=== PATIENT | male | born 1985 | race Caucasian/White ===

== ENCOUNTER 2020-10-05 16:00 | Observation (INO) | payer OTHER ==
[2020-10-05] MEDS ORDERED: Sodium Chloride 0.9% 1,000 ML IV ONE (16:32)
[2020-10-05] MEDS ORDERED: Sodium Chloride 0.9% 2.5 ML Syringe FLUSH PRN (16:32)
[2020-10-05] MEDS ORDERED: Sodium Chloride 0.9% 10 ML Syringe FLUSH PRN (16:32)
[2020-10-05 17:14] LABS: BLOOD UREA NITROGEN,BUN 15 mg/dL (7.0-18.0); CARBON DIOXIDE,CO2 25.2 mmol/L (21.0-32.0); CHLORIDE,CL 103 mmol/L (98-107); GLUCOSE RANDOM 95 mg/dL (74-106); POTASSIUM,K 3.9 mmol/L (3.5-5.1); SODIUM,NA 137 mmol/L (136-148)
--- NOTE | 2020-10-05 17:19 | CT ---
INDICATION: Right-sided weakness TECHNIQUE: Non-contrast CT of the head is submitted. No comparisons. FINDINGS: The ventricles, sulci and gyri are of normal size, shape and contour. Midline structures are centrally located. No convincing evidence of intra- or extra-axial fluid collections. IMPRESSION: 1. No radiographic evidence of acute intracranial abnormalities. Please note that all CT scans at this facility use dose modulation, iterative reconstruction, and/or weight-based dosing when appropriate to reduce radiation dose to as low as reasonably achievable. Dictated by Laurent Parra MD @ 10/05/2020 5:17:[address] Laurent Parra @ Oct 05 2020 5:17PM
--- NOTE | 2020-10-05 17:29 | CR ---
Indication: Right-sided weakness Comparison: None available. Technique: Single AP view chest Findings: There is hyperinflation and chronic interstitial change. There is mild central pulmonary vascular congestion. There is no dense consolidation, effusion or pneumothorax. The cardiac silhouette is enlarged with a dual-chamber pacer. The bony thorax is grossly intact. Impression: Mild hyperinflation and central pulmonary vascular congestion without dense consolidation. Demonstration of mild cardiomegaly with cardiac valve prosthesis and dual-chamber pacer. Dictated by Stephen Del Rosario MD @ 10/05/2020 5:28:[address] Stephen Del Rosario @ Oct 05 2020 5:28PM
--- NOTE | 2020-10-05 18:12 | EDM.PDOC ---
ED HPI GENERAL MEDICAL PROBLEM - General Chief Complaint: General Stated Complaint: BODY TWITCHING Time Seen by Provider: 10/05/20 16:07 - History of Present Illness INITIAL COMMENTS - FREE TEXT/NARRATIVE: HISTORY AND PHYSICAL: History of present illness: This is a 35-year-old gentleman with a history significant for a bicuspid aortic valve status post aortic valve replacement x2. 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 Patient reports that he is currently on chronic antibiotic therapy for endocarditis as well as a chronic anticoagulation therapy. Patient reports that all the surgeries have been done at the [facility]. Patient presented to the ER today secondary to concerns of weakness to his right upper extremity as well as twitching in his right upper and right lower extremity. 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 Patient reports that he dropped his ranch and bent over to pick it up and was having from a hard time grasping it. Patient reports that he picked up 5 times and dropped it 5 times. Patient reports only 6 attempt he was able to hold it with his right hand in place in his pocket. Patient felt dizzy and so he went to his car and thought that he might have been dehydrated because he did not drink much fluids today while he was outdoors. Patient sat in his truck turned on the air conditioning and called his mother. Patient reports that while he was sitting in his truck he started having twitching of his right upper extremity with his wrist biceps and shoulder flexing intermittently for approximately 30 minutes. Patient reports he called his mother for medical advice because she is a nurse and she was concerned that he might be dehydrated she told him to drink fluids. Patient reports he pushed fluids while he was in his truck with no significant improvement in the twitching so he called his form and to bring him to the ED. Upon arrival to the ED the patient reports that the twitching had significantly decreased and that the weakness in his right hand had completely resolved. Patient reports that he had no other symptomatology today. Patient denies any recent fevers, shakes, chills, nausea, vomiting, diarrhea, dysuria, frequency, urgency, chest pain, shortness of breath, abdominal pain. Patient denies any associated slurring of speech, blurred vision or double vision. Patient denies any weakness to his left upper or lower extremities. Patient denies any weakness to his right lower extremity but reports that he was experiencing some intermittent episodes of twitching to his right leg as well. Upon my evaluation in the ED, the patient reports that the weakness is no longer present and the twitching has nearly completely resolved. Review of systems: As per history of present illness and below otherwise all systems reviewed and negative. Past medical history: As per history of present illness and as reviewed below otherwise noncontribu tory. Surgical history: As per history of present illness and as reviewed below otherwise noncontributory. Social history: No reported history of drug abuse. Family history: As per history of present illness and as reviewed below otherwise noncontributory. Physical exam: This patient was seen and evaluated during the 2019 SARS-CoV-2 novel coronavirus pandemic period. Community viral transmission is ongoing at time of this encounter and the emergency department is operating under pandemic response procedures. Constitutional: Patient is oriented to person, place, and time. Appears well- developed and well-nourished. No distress. HEENT: Moist mucous membranes Head: Normocephalic and atraumatic Eyes: Right eye exhibits no discharge. Left eye exhibits no discharge. No scleral icterus Neck: Normal range of motion. No tracheal deviation present. Cardiovascular: Normal rate and regular rhythm. Pulmonary: Effort normal, no respiratory distress. Abdominal: No distention Musculoskeletal: Normal range of motion Neurologic: Alert and oriented to person, place and time. Skin: [place], warm and dry. Psychiatric: Normal mood and affect. Behavior is normal. Judgment and thought content normal. Nursing note and vital signs have been reviewed Neuro: A&Ox3. Cranial nerves II-XII grossly intact, 5/5 strength to bilateral upper and lower extremities, sensation intact to bilateral upper and lower extremities, no nystagmus, PERRLA, EOMI, normal speech, proprioception intact to bilateral lower extremities, normal finger to nose test, gait normal. Patient has normal rapid alternating motion, normal [id number], normal [id number]. Patient has no pronator drift and his strength in all extremities is 5 out of 5. Diagnostics: CT head no acute pathology. Chest Xray: Normal cardiac silhouette No infiltrates or effusions identified. No PTX No evidence of acute bony fracture. As interpreted by ER MD: Armando EKG: As interpreted by ER physician: Armando: Nonspecific ST-T wave abnormalities Prolonged QT interval at 0.492. Left axis deviation No evidence of ST elevation VA Paced rhythm at a rate of [address]-T wave abnormalities. Therapeutics: [] Assessment and plan: This is a 35-year-old gentleman with a history significant for stroke in the past believed to be secondary to vegetations on his aortic valve repair who presents ER today with signs symptoms concerning for possible stroke that occurred at 3 PM. Patient currently is on chronic anticoagulation therapy and is not a candidate for any thrombolytic intervention and so TPA is not an option. Upon arrival to the ED, the patient has an NIH score of 0. Patient's neuro exam is normal. Patient does have residual twitching. Of concern is whether or not the patient had a small TIA resulting in scar tissue and the twitching that he was having in his car was a focal seizure. At this time, the patient is clinically hemodynamic stable but will need to be admitted to the hospital for further evaluation of a possible stroke. Patient's INR is therapeutic. Patient's labs are all within normal limits. Case was discussed with Dr. Welsh who agrees with admitting patient for ops t elemetry for further evaluation of strokelike symptoms. Definitive disposition and diagnosis as appropriate pending reevaluation and review of above. - Related Data Allergies Allergy/AdvReac Type Severity Reaction Status Date / Time No Known Allergies Allergy Verified 10/05/20 16:38 Home Meds: Home Meds Cefadroxil [Duricef] 500 mg PO BID 10/05/20 [History] Losartan [Cozaar] 25 mg PO DAILY 10/05/20 [History] Warfarin [Coumadin] 5 mg PO DAILY 10/05/20 [History] ED ROS GENERAL - Review of Systems Review Of Systems: See Below ED EXAM, GENERAL - Physical Exam Exam: See Below Course - Vital Signs Last Recorded V/S: Last Vital Signs Temp 97.3 F 10/05/20 16:27 Pulse 72 10/05/20 16:27 Resp 18 10/05/20 16:27 BP 120/67 10/05/20 16:27 Pulse Ox 95 10/05/20 16:27 - Orders/Labs/Meds Orders: Active Orders 24 hr Category Date Time Status EKG Documentation Completion [RC] AM Care 10/05/20 16:32 Active CORONAVIRUS COVID-19 ELEAZAR [MOLEC] Stat Lab 10/05/20 17:51 Received MAGNESIUM [CHEM] Routine Lab 10/05/20 18:02 Ordered PHOSPHORUS [CHEM] Routine Lab 10/05/20 18:02 Ordered Sodium Chloride 0.9% [Saline Flush] Med 10/05/20 16:32 Active 10 ml FLUSH ASDIRECTED PRN Sodium Chloride 0.9% [Saline Flush] Med 10/05/20 16:32 Active 2.5 ml FLUSH ASDIRECTED PRN Saline Lock Insert [OM.PC] Stat Oth 10/05/20 16:32 Ordered Medication Orders Sodium Chloride (Sodium Chloride 0.9% 10 Ml Syringe) 10 ml FLUSH ASDIRECTED PRN PRN Reason: Keep Vein Open Last Admin: 10/05/20 16:38 Dose: 10 ml Documented by: SHONDA Sodium Chloride (Sodium Chloride 0.9% 2.5 Ml Syringe) 2.5 ml FLUSH ASDIRECTED PRN PRN Reason: Keep Vein Open Last Admin: 10/05/20 16:38 Dose: 2.5 ml Documented by: SHONDA Labs: Laboratory Tests 10/05/20 10/05/20 10/05/20 Range/Units 16:20 16:20 17:25 WBC 8.20 (4.0-11.0) K/uL RBC 4.63 (4.50-5.90) M/uL Hgb 14.2 (13.0-17.0) g/dL Hct 41.0 (38.0-50.0) % MCV 88.6 (80.0-98.0) fL MCH 30.7 (27.0-32.0) pg MCHC 34.6 (31.0-37.0) g/dL RDW Std Deviation 43.5 (28.0-62.0) fl RDW Coeff of Janeth 13 (11.0-15.0) % Plt Count 225 (150-400) K/uL MPV 9.90 (7.40-12.00) fL Neut % (Auto) 63.0 (48.0-80.0) % Lymph % (Auto) 23.2 (16.0-40.0) % [place] % (Auto) 12.1 (0.0-15.0) % Eos % (Auto) 1.5 (0.0-7.0) % Baso % (Auto) 0.2 (0.0-1.5) % Neut # (Auto) 5.2 (1.4-5.7) K/uL Lymph # (Auto) 1.9 (0.6-2.4) K/uL [place] # (Auto) 1.0 H (0.0-0.8) K/uL Eos # (Auto) 0.1 (0.0-0.7) K/uL Baso # (Auto) 0.0 (0.0-0.1) K/uL Nucleated RBC % 0.0 /100WBC Nucleated RBCs # 0 K/uL INR 2.67 Sodium 137 (136-148) mmol/L Potassium 3.9 (3.5-5.1) mmol/L Chloride 103 (98-107) mmol/L Carbon Dioxide 25.2 (21.0-32.0) mmol/L BUN 15 (7.0-18.0) mg/dL Creatinine 1.0 (0.8-1.3) mg/dL Est Cr Clr Drug Dosing 122.16 mL/min Estimated GFR (MDRD) > 60.0 ml/min Glucose 95 (74-106) mg/dL Calcium 9.0 (8.5-10.1) mg/dL Total Bilirubin 1.1 H (0.2-1.0) mg/dL AST 25 (15-37) IU/L ALT 29 (14-63) IU/L Alkaline Phosphatase 100 (46-116) U/L Troponin I < 0.050 (0.000-0.056) ng/mL Total Protein 7.4 (6.4-8.2) g/dL Albumin 3.8 (3.4-5.0) g/dL Globulin 3.6 (2.6-4.0) g/dL Albumin/Globulin Ratio 1.1 (0.9-1.6) Meds: Medications Generic Name Dose Route Start Last Admin Trade Name Freq PRN Reason Stop Dose Admin Sodium Chloride 10 ml 10/05/20 16:32 10/05/20 16:38 Sodium Chloride 0.9% 10 Ml Syringe FLUSH 10 ml ASDIRECTED PRN Administration Keep Vein Open Sodium Chloride 2.5 ml 10/05/20 16:32 10/05/20 16:38 Sodium Chloride 0.9% 2.5 Ml Syringe FLUSH 2.5 ml ASDIRECTED PRN Administration Keep Vein Open Discontinued Medications Generic Name Dose Route Start Last Admin Trade Name Baltazar PRN Reason Stop Dose Admin Sodium Chloride 1,000 mls @ 999 mls/hr 10/05/20 16:32 10/05/20 16:38 Normal Saline IV 10/05/20 17:32 999 mls/hr .Bolus ONE Administration Departure - Departure Time of Disposition: 18:13 Disposition: Refer to Observation Condition: Good Clinical Impression: CVA, Cerebrovascular accident, Seizure-like activity - Discharge Information Referrals: Arjun Lagunas MD [Primary Care Provider] - Sepsis Event Note (ED) - Evaluation Sepsis Screening Result: No Definite Risk - Focused Exam Vital Signs: Vital Signs Temp Pulse Resp BP Pulse Ox 10/05/20 16:27 97.3 F 72 18 120/67 95 - My Orders Last 24 Hours: My Active Orders 10/05/20 16:32 EKG Documentation Completion [RC] AM Sodium Chloride 0.9% [Saline Flush] 10 ml FLUSH ASDIRECTED PRN Sodium Chloride 0.9% [Saline Flush] 2.5 ml FLUSH ASDIRECTED PRN Saline Lock Insert [OM.PC] Stat 10/05/20 17:51 CORONAVIRUS COVID-19 ELEAZAR [MOLEC] Stat - Assessment/Plan Last 24 Hours: My Active Orders 10/05/20 16:32 EKG Documentation Completion [RC] AM Sodium Chloride 0.9% [Saline Flush] 10 ml FLUSH ASDIRECTED PRN Sodium Chloride 0.9% [Saline Flush] 2.5 ml FLUSH ASDIRECTED PRN Saline Lock Insert [OM.PC] Stat 10/05/20 17:51 CORONAVIRUS COVID-19 ELEAZAR [MOLEC] Stat
--- NOTE | 2020-10-05 19:03 | PCM.HP.2 ---
H&P History of Present Illness - General Date of Service: 10/05/20 Admit Problem/Dx: Admission Diagnosis/Problem Admission Diagnosis/Problem Stroke-like symptoms Source of Information: Patient, Family History Limitations: Reports: No Limitations - History of Present Illness Initial Comments - Free Text/Narative: This is a 35-year-old gentleman with a history significant for a bicuspid aortic valve status post aortic valve replacement x3, TIA, status post pacemaker who comes in with concerns of right hand twitching and dizziness. Patient reports that he has had a history of congenital bicuspid aortic valve which was initially repaired in September 2015, March 2016 it had to be revised due to valve dehiscence and it was found out that his valve was infected and did require to be replaced which eventually also resulted in a TIA from aortic valve vegetation.. Patient states that soon after he again started having trouble with his heart and breathing and that eventually his had to be replaced again in May [address] [facility]. Patient has a mechanical aortic valve and is on Coumadin as well as lifelong antibiotic therapy. Patient presented to the ER today secondary to concerns of twitching of his right upper extremity. 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 Patient reports that he dropped his ranch and bent over to pick it up several times but he did not seem to reach it. Patient states that "he felt drunk" and was feeling "out of it". 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 She recommended that he drink some more water but patient continued to have twitching in his right hand with his wrist biceps and shoulder flexing intermittently for about 30 minutes. so he called EMS and was brought into the hospital. Upon arrival to the ED the patient reports that the twitching had significantly decreased and that the weakness in his right hand had completely resolved. Patient reports that he had no other symptomatology today. Patient denies any recent fevers, shakes, chills, nausea, vomiting, diarrhea, dysuria, frequency, urgency, chest pain, shortness of breath, abdominal pain. Patient denies any associated slurring of speech, blurred vision or double vision. Patient denies any weakness to his left upper or lower extremities. Patient denies any weakness to his right lower extremity but reports that he was experiencing some intermittent episodes of twitching to his right leg as well. Upon my evaluation in the ED, the patient did not endorse any weakness to me but did say that he had twitching in his arm which had completely resolved by the time I examined the patient. EKG was unremarkable for any acute process, troponin was negative, CT scan of the head was done which was unremarkable for any intracranial acute process. Given patient's complicated cardiac history and history of TIA patient was admitted for observation overnight for stroke work-up - Related Data Allergies/Adverse Reactions: Allergies Allergy/AdvReac Type Severity Reaction Status Date / Time No Known Allergies Allergy Verified 10/05/20 16:38 Home Medications: Home Meds Cefadroxil [Duricef] 500 mg PO BID 10/05/20 [History] Losartan [Cozaar] 25 mg PO DAILY 10/05/20 [History] Warfarin [Coumadin] 5 mg PO DAILY 10/05/20 [History] Past Medical History Respiratory History: Reports: None Musculoskeletal History: Reports: Other (See Below) Other Musculoskeletal History: Missing sternum secondary to infection - Past Surgical History Cardiovascular Surgical History: Reports: Valve Replacement, Vascular Surgery Social & Family History - Family History Family Medical History: No Pertinent Family History - Tobacco Use Tobacco Use Status *Q: Former Tobacco User Used Tobacco, but Quit: Yes Month/Year Tobacco Last Used: unknown - Caffeine Use Caffeine Use: Reports: None - Recreational Drug Use Recreational Drug Use: No H&P Review of Systems - Review of Systems: Review Of Systems: See Below General: Denies: Fever, Chills, Malaise HEENT: Denies: Contact Lenses Pulmonary: Denies: Shortness of Breath, Wheezing Cardiovascular: Denies: Chest Pain, Palpitations Gastrointestinal: Denies: Abdominal Pain, Anorexia Genitourinary: Denies: Dysuria, Frequency, Burning, Pain Musculoskeletal: Denies: Neck Pain, Shoulder Pain, Arm Pain, Back Pain Skin: Denies: Cyanosis, Jaundice, Mottled, Diaphoresis Psychiatric: Denies: Confusion, Depression, Mood Lability, Anxiety Neurological: Denies: Confusion, Dizziness, Headache, Difficulty Walking, Weakness, Change in Speech Hematologic/Lymphatic: Denies: Anemia, Easy Bleeding, Easy Bruising Exam - Vital Signs Vital Signs: Last Vital Signs Temp 36.3 C 06/29/21 16:27 Pulse 72 10/05/20 16:27 Resp 18 10/05/20 16:27 BP 120/67 10/05/20 16:27 Pulse Ox 95 10/05/20 16:27 Weight: 90.718 kg - Exam General: Alert, Oriented, Cooperative Neck: Supple Lungs: Clear to Auscultation, Normal Respiratory Effort Cardiovascular: Regular Rate, Regular Rhythm GI/Abdominal Exam: Normal Bowel Sounds, Soft, Non-Tender Back Exam: Normal Inspection, Full Range of Motion Extremities: Normal Inspection, Normal Range of Motion - Patient Data Lab Results Last 24 hrs: Laboratory Results - last 24 hr 10/05/20 10/05/20 10/05/20 Range/Units 16:20 16:20 16:20 WBC 8.20 (4.0-11.0) K/uL RBC 4.63 (4.50-5.90) M/uL Hgb 14.2 (13.0-17.0) g/dL Hct 41.0 (38.0-50.0) % MCV 88.6 (80.0-98.0) fL MCH 30.7 (27.0-32.0) pg MCHC 34.6 (31.0-37.0) g/dL RDW Std Deviation 43.5 (28.0-62.0) fl RDW Coeff of Janeth 13 (11.0-15.0) % Plt Count 225 (150-400) K/uL MPV 9.90 (7.40-12.00) fL Neut % (Auto) 63.0 (48.0-80.0) % Lymph % (Auto) 23.2 (16.0-40.0) % Snyder % (Auto) 12.1 (0.0-15.0) % Eos % (Auto) 1.5 (0.0-7.0) % Baso % (Auto) 0.2 (0.0-1.5) % Neut # (Auto) 5.2 (1.4-5.7) K/uL Lymph # (Auto) 1.9 (0.6-2.4) K/uL Snyder # (Auto) 1.0 H (0.0-0.8) K/uL Eos # (Auto) 0.1 (0.0-0.7) K/uL Baso # (Auto) 0.0 (0.0-0.1) K/uL Nucleated RBC % 0.0 /100WBC Nucleated RBCs # 0 K/uL INR Sodium 137 (136-148) mmol/L Potassium 3.9 (3.5-5.1) mmol/L Chloride 103 (98-107) mmol/L Carbon Dioxide 25.2 (21.0-32.0) mmol/L BUN 15 (7.0-18.0) mg/dL Creatinine 1.0 (0.8-1.3) mg/dL Est Cr Clr Drug Dosing 122.16 mL/min Estimated GFR (MDRD) > 60.0 ml/min Glucose 95 (74-106) mg/dL Calcium 9.0 (8.5-10.1) mg/dL Phosphorus 3.6 (2.6-4.7) mg/dL Magnesium 2.0 (1.8-2.4) mg/dL Total Bilirubin 1.1 H (0.2-1.0) mg/dL AST 25 (15-37) IU/L ALT 29 (14-63) IU/L Alkaline Phosphatase 100 (46-116) U/L Troponin I < 0.050 (0.000-0.056) ng/mL Total Protein 7.4 (6.4-8.2) g/dL Albumin 3.8 (3.4-5.0) g/dL Globulin 3.6 (2.6-4.0) g/dL Albumin/Globulin Ratio 1.1 (0.9-1.6) SARS-CoV-2 RNA (ELEAZAR) (NEGATIVE) 10/05/20 10/05/20 Range/Units 17:25 17:51 WBC (4.0-11.0) K/uL RBC (4.50-5.90) M/uL Hgb (13.0-17.0) g/dL Hct (38.0-50.0) % MCV (80.0-98.0) fL MCH (27.0-32.0) pg MCHC (31.0-37.0) g/dL RDW Std Deviation (28.0-62.0) fl RDW Coeff of Janeth (11.0-15.0) % Plt Count (150-400) K/uL MPV (7.40-12.00) fL Neut % (Auto) (48.0-80.0) % Lymph % (Auto) (16.0-40.0) % Snyder % (Auto) (0.0-15.0) % Eos % (Auto) (0.0-7.0) % Baso % (Auto) (0.0-1.5) % Neut # (Auto) (1.4-5.7) K/uL Lymph # (Auto) (0.6-2.4) K/uL Snyder # (Auto) (0.0-0.8) K/uL Eos # (Auto) (0.0-0.7) K/uL Baso # (Auto) (0.0-0.1) K/uL Nucleated RBC % /100WBC Nucleated RBCs # K/uL INR 2.67 Sodium (136-148) mmol/L Potassium (3.5-5.1) mmol/L Chloride (98-107) mmol/L Carbon Dioxide (21.0-32.0) mmol/L BUN (7.0-18.0) mg/dL Creatinine (0.8-1.3) mg/dL Est Cr Clr Drug Dosing mL/min Estimated GFR (MDRD) ml/min Glucose (74-106) mg/dL Calcium (8.5-10.1) mg/dL Phosphorus (2.6-4.7) mg/dL Magnesium (1.8-2.4) mg/dL Total Bilirubin (0.2-1.0) mg/dL AST (15-37) IU/L ALT (14-63) IU/L Alkaline Phosphatase (46-116) U/L Troponin I (0.000-0.056) ng/mL Total Protein (6.4-8.2) g/dL Albumin (3.4-5.0) g/dL Globulin (2.6-4.0) g/dL Albumin/Globulin Ratio (0.9-1.6) SARS-CoV-2 RNA (ELEAZAR) NEGATIVE (NEGATIVE) Result Diagrams: 10/05/20 16:20 10/05/20 16:20 Sepsis Event Note - Evaluation Sepsis Screening Result: No Definite Risk - Focused Exam Vital Signs: Vital Signs Temp Pulse Resp BP Pulse Ox 10/05/20 16:27 36.3 C 72 18 120/67 95 - Problem List (1) Twitching SNOMED Code(s): 304466660 ICD Code: R25.3 - FASCICULATION Status: Acute Current Visit: Yes (2) Dizziness SNOMED Code(s): 774931284, 145729817 ICD Code: R42 - DIZZINESS AND GIDDINESS Status: Acute Current Visit: Yes (3) CVA, Cerebrovascular accident SNOMED Code(s): 485284849 ICD Code: I63.9 - CEREBRAL INFARCTION, UNSPECIFIED Status: Acute Current Visit: Yes (4) Seizure-like activity SNOMED Code(s): 494135983 ICD Code: R56.9 - UNSPECIFIED CONVULSIONS Status: Acute Current Visit: Yes (5) Aortic valve replaced SNOMED Code(s): 1768611571816, 96727187, 3683914930298 ICD Code: Z95.2 - PRESENCE OF PROSTHETIC HEART VALVE Status: Acute Current Visit: Yes (6) Cardiac pacemaker in situ SNOMED Code(s): 664626639 ICD Code: Z95.0 - PRESENCE OF CARDIAC PACEMAKER Status: Acute Current Visit: Yes Problem List Initiated/Reviewed/Updated: Yes Orders Last 24hrs: Active Orders 24 hr Category Date Time Status Patient Status [ADT] Routine ADT 10/05/20 18:13 Active Ambulate [RC] ASDIRECTED Care 10/05/20 18:51 Ordered EKG Documentation Completion [RC] AM Care 10/05/20 16:32 Active Oxygen Therapy [RC] PRN Care 10/05/20 18:52 Ordered Pulse Oximetry [RC] PRN Care 10/05/20 18:52 Ordered VTE/DVT Education [RC] PER UNIT ROUTINE Care 10/05/20 18:52 Ordered Vital Signs [RC] Q4H Care 10/05/20 18:52 Ordered Heart Healthy Diet [DIET] Diet 10/05/20 Dinner Ordered Ang Head wo Cont [MR] Routine Exams 10/05/20 18:59 Ordered Ang Neck w Cont [MR] Routine Exams 10/05/20 18:59 Ordered Brain w wo Cont [MR] Routine Exams 10/05/20 18:58 Ordered Lactated Ringers @ 125 MLS/HR(1000ml) Med 10/05/20 19:00 Ordered Lactated Ringers [Ringers, Lactated] 1,000 ml IV ASDIRECTED Sodium Chloride 0.9% [Saline Flush] Med 10/05/20 16:32 Active 10 ml FLUSH ASDIRECTED PRN Sodium Chloride 0.9% [Saline Flush] Med 10/05/20 16:32 Active 2.5 ml FLUSH ASDIRECTED PRN Saline Lock Insert [OM.PC] Stat Oth 10/05/20 16:32 Ordered Resuscitation Status Routine Resus Stat 10/05/20 18:51 Ordered Medication Orders Lactated Ringer's (Ringers, Lactated) 1,000 mls @ 125 mls/hr IV ASDIRECTED GILSON Stop: 10/06/20 07:00 Sodium Chloride (Sodium Chloride 0.9% 10 Ml Syringe) 10 ml FLUSH ASDIRECTED PRN PRN Reason: Keep Vein Open Last Admin: 10/05/20 16:38 Dose: 10 ml Documented by: SHONDA Sodium Chloride (Sodium Chloride 0.9% 2.5 Ml Syringe) 2.5 ml FLUSH ASDIRECTED PRN PRN Reason: Keep Vein Open Last Admin: 10/05/20 16:38 Dose: 2.5 ml Documented by: SHONDA Assessment/Plan Comment:: 35-year-old male admitted for possible TIA versus partial seizure Admit to MedSur, telemetry Neurochecks twice daily Start IV fluids as patient was dehydrated of the day and symptoms could be likely secondary to possible heatstroke Check magnesium and fast Monitor and replete electrolytes as needed CT scan of the head negative, will obtain MRI of the brain although unsure if that is possible given patient has a pacemaker as well as a mechanical valve We will obtain 2D echo to assess the structural integrity of the mechanical aortic valve Continue to monitor closely Hold antihypertensive meds for now Check TSH, lipid panel, glycated hemoglobin Check INR daily, continue Coumadin per pharmacy
[2020-10-05] MEDS ORDERED: LORazepam 2 MG/ML SDV IVPUSH PRN (19:12)
[2020-10-05] MEDS ORDERED: Warfarin 5 MG Tab PO SCH (19:15)
[2020-10-05 19:48] LABS: HEMOGLOBIN A1C 5.6 %
[2020-10-05] MEDS: Lactated Ringers 1,000 ML IV SCH (22:51)
[2020-10-05] MEDS: Cefadroxil 500 MG Cap PO SCH (23:26)
[2020-10-06] MEDS: Lactated Ringers 1,000 ML IV SCH (04:44)
[2020-10-06 06:09] LABS: BLOOD UREA NITROGEN,BUN 13 mg/dL (7.0-18.0); CHLORIDE,CL 107 mmol/L (98-107); GLUCOSE RANDOM 101 mg/dL (74-106); SODIUM,NA 141 mmol/L (136-148)
[2020-10-06] MEDS: Cefadroxil 500 MG Cap PO SCH (09:14)
--- NOTE | 2020-10-06 12:51 | PCM.DCSUM1 ---
Discharge Summary - Discharge Data Discharge Date: 10/06/20 Discharge Disposition: Home, Self-Care 01 Condition: Stable - Referral to Home Health Primary Care Physician: Arjun Lagunas MD - Patient Summary/Data Hospital Course: This is a 35-year-old gentleman with a history significant for a bicuspid aortic valve status post aortic valve replacement x3, TIA, status post pacemaker who comes in with concerns of right hand twitching and dizziness. CT scan of the head was done which was unremarkable for any intracranial acute process. Lab work was unremarkable and INR was in therapeutic range. Given patient's complicated cardiac history and history of TIA patient was admitted for observation overnight. Overnight he had no events. Due to his pacemaker we are unable to get an MRI. I offered to repeat CT head in 24 hours but patient preferred discharge and outpatient follow up. Patient was discharge home. - Patient Instructions Diet: Regular Diet as Tolerated - Discharge Plan Home Medications: Home Meds Cefadroxil [Duricef] 500 mg PO BID 10/05/20 [History] Losartan [Cozaar] 25 mg PO DAILY 10/05/20 [History] Warfarin [Coumadin] 5 mg PO DAILY 10/05/20 [History] Escitalopram [Lexapro] 20 mg PO DAILY 10/06/20 [History] Metoprolol Tartrate 25 mg BID 10/06/20 [History] Patient Handouts: Transient Ischemic Attack Referrals: Arjun Lagunas MD [Primary Care Provider] - 10/14/20 1:00 pm - Discharge Summary/Plan Comment DC Time >30 min.: No - Patient Data Vitals - Most Recent: Last Vital Signs Temp 36.2 C 10/06/20 07:00 Pulse 80 10/06/20 07:00 Resp 16 10/06/20 07:00 BP 109/68 10/06/20 07:00 Pulse Ox 95 10/06/20 07:00 Weight - Most Recent: 90.718 kg I&O - Last 24 hours: Intake & Output 10/05/20 10/06/20 10/06/20 22:59 06:59 14:59 Intake Total 720 Balance 720 Lab Results - Last 24 hrs: Laboratory Results - last 24 hr 10/05/20 10/05/20 10/05/20 Range/Units 16:20 16:20 16:20 WBC 8.20 (4.0-11.0) K/uL RBC 4.63 (4.50-5.90) M/uL Hgb 14.2 (13.0-17.0) g/dL Hct 41.0 (38.0-50.0) % MCV 88.6 (80.0-98.0) fL MCH 30.7 (27.0-32.0) pg MCHC 34.6 (31.0-37.0) g/dL RDW Std Deviation 43.5 (28.0-62.0) fl RDW Coeff of Janeth 13 (11.0-15.0) % Plt Count 225 (150-400) K/uL MPV 9.90 (7.40-12.00) fL Neut % (Auto) 63.0 (48.0-80.0) % Lymph % (Auto) 23.2 (16.0-40.0) % [place] % (Auto) 12.1 (0.0-15.0) % Eos % (Auto) 1.5 (0.0-7.0) % Baso % (Auto) 0.2 (0.0-1.5) % Neut # (Auto) 5.2 (1.4-5.7) K/uL Lymph # (Auto) 1.9 (0.6-2.4) K/uL [place] # (Auto) 1.0 H (0.0-0.8) K/uL Eos # (Auto) 0.1 (0.0-0.7) K/uL Baso # (Auto) 0.0 (0.0-0.1) K/uL Nucleated RBC % 0.0 /100WBC Nucleated RBCs # 0 K/uL INR Sodium 137 (136-148) mmol/L Potassium 3.9 (3.5-5.1) mmol/L Chloride 103 (98-107) mmol/L Carbon Dioxide 25.2 (21.0-32.0) mmol/L BUN 15 (7.0-18.0) mg/dL Creatinine 1.0 (0.8-1.3) mg/dL Est Cr Clr Drug Dosing 122.16 mL/min Estimated GFR (MDRD) > 60.0 ml/min Glucose 95 (74-106) mg/dL Hemoglobin A1c (4.5 - 6.2) % Calcium 9.0 (8.5-10.1) mg/dL Phosphorus 3.6 (2.6-4.7) mg/dL Magnesium 2.0 (1.8-2.4) mg/dL Total Bilirubin 1.1 H (0.2-1.0) mg/dL AST 25 (15-37) IU/L ALT 29 (14-63) IU/L Alkaline Phosphatase 100 (46-116) U/L Troponin I < 0.050 (0.000-0.056) ng/mL Total Protein 7.4 (6.4-8.2) g/dL Albumin 3.8 (3.4-5.0) g/dL Globulin 3.6 (2.6-4.0) g/dL Albumin/Globulin Ratio 1.1 (0.9-1.6) Triglycerides (0-200) mg/dL Cholesterol (50-200) mg/dL LDL Cholesterol, Calc (60-180) mg/dL VLDL Cholesterol (5-55) mg/dL HDL Cholesterol (40-60) mg/dL Cholesterol/HDL Ratio (3.3-6.0) TSH 3rd Generation (0.36-3.74) uIU/mL SARS-CoV-2 RNA (ELEAZAR) (NEGATIVE) 10/05/20 10/05/20 10/05/20 Range/Units 16:20 17:25 17:25 WBC (4.0-11.0) K/uL RBC (4.50-5.90) M/uL Hgb (13.0-17.0) g/dL Hct (38.0-50.0) % MCV (80.0-98.0) fL MCH (27.0-32.0) pg MCHC (31.0-37.0) g/dL RDW Std Deviation (28.0-62.0) fl RDW Coeff of Janeth (11.0-15.0) % Plt Count (150-400) K/uL MPV (7.40-12.00) fL Neut % (Auto) (48.0-80.0) % Lymph % (Auto) (16.0-40.0) % [place] % (Auto) (0.0-15.0) % Eos % (Auto) (0.0-7.0) % Baso % (Auto) (0.0-1.5) % Neut # (Auto) (1.4-5.7) K/uL Lymph # (Auto) (0.6-2.4) K/uL [place] # (Auto) (0.0-0.8) K/uL Eos # (Auto) (0.0-0.7) K/uL Baso # (Auto) (0.0-0.1) K/uL Nucleated RBC % /100WBC Nucleated RBCs # K/uL INR 2.67 Sodium (136-148) mmol/L Potassium (3.5-5.1) mmol/L Chloride (98-107) mmol/L Carbon Dioxide (21.0-32.0) mmol/L BUN (7.0-18.0) mg/dL Creatinine (0.8-1.3) mg/dL Est Cr Clr Drug Dosing mL/min Estimated GFR (MDRD) ml/min Glucose (74-106) mg/dL Hemoglobin A1c 5.6 (4.5 - 6.2) % Calcium (8.5-10.1) mg/dL Phosphorus (2.6-4.7) mg/dL Magnesium (1.8-2.4) mg/dL Total Bilirubin (0.2-1.0) mg/dL AST (15-37) IU/L ALT (14-63) IU/L Alkaline Phosphatase (46-116) U/L Troponin I (0.000-0.056) ng/mL Total Protein (6.4-8.2) g/dL Albumin (3.4-5.0) g/dL Globulin (2.6-4.0) g/dL Albumin/Globulin Ratio (0.9-1.6) Triglycerides 66 (0-200) mg/dL Cholesterol 192 (50-200) mg/dL LDL Cholesterol, Calc 125 (60-180) mg/dL VLDL Cholesterol 13 (5-55) mg/dL HDL Cholesterol 54 (40-60) mg/dL Cholesterol/HDL Ratio 3.6 (3.3-6.0) TSH 3rd Generation 1.05 (0.36-3.74) uIU/mL SARS-CoV-2 RNA (ELEAZAR) (NEGATIVE) 10/05/20 10/06/20 10/06/20 Range/Units 17:51 05:20 05:20 WBC 7.66 (4.0-11.0) K/uL RBC 4.31 L (4.50-5.90) M/uL Hgb 13.2 (13.0-17.0) g/dL Hct 38.5 (38.0-50.0) % MCV 89.3 (80.0-98.0) fL MCH 30.6 (27.0-32.0) pg MCHC 34.3 (31.0-37.0) g/dL RDW Std Deviation 43.6 (28.0-62.0) fl RDW Coeff of Janeth 13 (11.0-15.0) % Plt Count 205 (150-400) K/uL MPV 9.90 (7.40-12.00) fL Neut % (Auto) 62.0 (48.0-80.0) % Lymph % (Auto) 25.1 (16.0-40.0) % [place] % (Auto) 10.4 (0.0-15.0) % Eos % (Auto) 2.1 (0.0-7.0) % Baso % (Auto) 0.4 (0.0-1.5) % Neut # (Auto) 4.8 (1.4-5.7) K/uL Lymph # (Auto) 1.9 (0.6-2.4) K/uL [place] # (Auto) 0.8 (0.0-0.8) K/uL Eos # (Auto) 0.2 (0.0-0.7) K/uL Baso # (Auto) 0.0 (0.0-0.1) K/uL Nucleated RBC % 0.0 /100WBC Nucleated RBCs # 0 K/uL INR 2.59 Sodium (136-148) mmol/L Potassium (3.5-5.1) mmol/L Chloride (98-107) mmol/L Carbon Dioxide (21.0-32.0) mmol/L BUN (7.0-18.0) mg/dL Creatinine (0.8-1.3) mg/dL Est Cr Clr Drug Dosing mL/min Estimated GFR (MDRD) ml/min Glucose (74-106) mg/dL Hemoglobin A1c (4.5 - 6.2) % Calcium (8.5-10.1) mg/dL Phosphorus (2.6-4.7) mg/dL Magnesium (1.8-2.4) mg/dL Total Bilirubin (0.2-1.0) mg/dL AST (15-37) IU/L ALT (14-63) IU/L Alkaline Phosphatase (46-116) U/L Troponin I (0.000-0.056) ng/mL Total Protein (6.4-8.2) g/dL Albumin (3.4-5.0) g/dL Globulin (2.6-4.0) g/dL Albumin/Globulin Ratio (0.9-1.6) Triglycerides (0-200) mg/dL Cholesterol (50-200) mg/dL LDL Cholesterol, Calc (60-180) mg/dL VLDL Cholesterol (5-55) mg/dL HDL Cholesterol (40-60) mg/dL Cholesterol/HDL Ratio (3.3-6.0) TSH 3rd Generation (0.36-3.74) uIU/mL SARS-CoV-2 RNA (ELEAZAR) NEGATIVE (NEGATIVE) 10/06/20 Range/Units 05:20 WBC (4.0-11.0) K/uL RBC (4.50-5.90) M/uL Hgb (13.0-17.0) g/dL Hct (38.0-50.0) % MCV (80.0-98.0) fL MCH (27.0-32.0) pg MCHC (31.0-37.0) g/dL RDW Std Deviation (28.0-62.0) fl RDW Coeff of Janeth (11.0-15.0) % Plt Count (150-400) K/uL MPV (7.40-12.00) fL Neut % (Auto) (48.0-80.0) % Lymph % (Auto) (16.0-40.0) % [place] % (Auto) (0.0-15.0) % Eos % (Auto) (0.0-7.0) % Baso % (Auto) (0.0-1.5) % Neut # (Auto) (1.4-5.7) K/uL Lymph # (Auto) (0.6-2.4) K/uL [place] # (Auto) (0.0-0.8) K/uL Eos # (Auto) (0.0-0.7) K/uL Baso # (Auto) (0.0-0.1) K/uL Nucleated RBC % /100WBC Nucleated RBCs # K/uL INR Sodium 141 (136-148) mmol/L Potassium 4.0 (3.5-5.1) mmol/L Chloride 107 (98-107) mmol/L Carbon Dioxide 29.0 (21.0-32.0) mmol/L BUN 13 (7.0-18.0) mg/dL Creatinine 1.0 (0.8-1.3) mg/dL Est Cr Clr Drug Dosing 122.16 mL/min Estimated GFR (MDRD) > 60.0 ml/min Glucose 101 (74-106) mg/dL Hemoglobin A1c (4.5 - 6.2) % Calcium 8.6 (8.5-10.1) mg/dL Phosphorus 4.1 (2.6-4.7) mg/dL Magnesium 2.0 (1.8-2.4) mg/dL Total Bilirubin (0.2-1.0) mg/dL AST (15-37) IU/L ALT (14-63) IU/L Alkaline Phosphatase (46-116) U/L Troponin I (0.000-0.056) ng/mL Total Protein (6.4-8.2) g/dL Albumin (3.4-5.0) g/dL Globulin (2.6-4.0) g/dL Albumin/Globulin Ratio (0.9-1.6) Triglycerides (0-200) mg/dL Cholesterol (50-200) mg/dL LDL Cholesterol, Calc (60-180) mg/dL VLDL Cholesterol (5-55) mg/dL HDL Cholesterol (40-60) mg/dL Cholesterol/HDL Ratio (3.3-6.0) TSH 3rd Generation (0.36-3.74) uIU/mL SARS-CoV-2 RNA (ELEAZAR) (NEGATIVE) Med Orders - Current: Current Medications Cefadroxil (Cefadroxil 500 Mg Cap) 500 mg PO BID GILSON Last Admin: 10/06/20 09:14 Dose: 500 mg Documented by: Lorazepam (Lorazepam 2 Mg/Ml Sdv) 4 mg IVPUSH Q4H PRN PRN Reason: Seizures Sodium Chloride (Sodium Chloride 0.9% 10 Ml Syringe) 10 ml FLUSH ASDIRECTED PRN PRN Reason: Keep Vein Open Last Admin: 10/05/20 16:38 Dose: 10 ml Documented by: Sodium Chloride (Sodium Chloride 0.9% 2.5 Ml Syringe) 2.5 ml FLUSH ASDIRECTED PRN PRN Reason: Keep Vein Open Last Admin: 10/05/20 16:38 Dose: 2.5 ml Documented by: Warfarin Sodium (Warfarin Sliding Scale) 1 each PO DAILY@1400 COUNTS INCLUDE 234 BEDS AT THE [facility] Discontinued Medications Sodium Chloride (Normal Saline) 1,000 mls @ 999 mls/hr IV .Bolus ONE Stop: 10/05/20 17:32 Last Admin: 10/05/20 16:38 Dose: 999 mls/hr Documented by: Lactated Ringer's (Ringers, Lactated) 1,000 mls @ 125 mls/hr IV ASDIRECTED GILSON Stop: 10/06/20 07:00 Last Admin: 10/06/20 04:44 Dose: 125 mls/hr Documented by:
[2020-10-06] MEDS ORDERED: Warfarin Sliding Scale PO SCH (14:00)
== END 2020-10-06 13:30 | disposition home or self-care (01) ==
LOC: MW.ED 16:00 → MW.MS 18:13
PROVIDERS: ADMIT Student in an Organized Health Care Education/Training Program; ATTEND Student in an Organized Health Care Education/Training Program
DX: R42 Dizziness and giddiness (principal); R25.3 Fasciculation; Z95.4 Presence of other heart-valve replacement; Z79.899 Other long term (current) drug therapy; Z79.01 Long term (current) use of anticoagulants; Z86.73 Personal history of transient ischemic attack (TIA), and cerebral infarction without residual deficits; Z20.822 Contact with and (suspected) exposure to COVID-19
CPT/HCPCS: 36415; 70450; 71045; 80048; 80053; 80061; 83036; 83735; 84100; 84443; 84484; 85025; 85610; 87635; 93005; 99285; A9270; G0378; J7030; J7120; U0002